=== PATIENT | male | born 1960 | race Caucasian/White ===

== ENCOUNTER → 2022-12-14 | Outpatient (CLI) | payer BC ==
[2022-12-15 01:44] LABS: Prostate Specific Antigen 3.1 ng/mL (0.00-4.50)
== END | disposition home or self-care (01) ==
LOC: LABWHC1 14:45
PROVIDERS: ATTEND Urology
DX: E29.1 Testicular hypofunction (principal); R97.20 Elevated prostate specific antigen [PSA]
CPT/HCPCS: 36415; 84153; 84403

== ENCOUNTER → 2024-03-29 | Outpatient (CLI) | payer BC ==
[2024-03-29 13:50] VITALS: BP 133/90; PULSE 90; RESP 16; TEMP 98.4
--- NOTE | 2024-03-29 14:32 | P.SLEEP ---
History of Present Illness DATE: 03/29/2024 CONSULTATION/NEW PATIENT EVALUATION HISTORY OF PRESENT ILLNESS/SLEEP-WAKE EVALUATION: 63-year-old gentleman had be en evaluated in the sleep center for possible obstructive sleep apnea hypopnea syndrome. SLEEP SCHEDULE: Usually sleep schedule from 10 PM to 4:30 AM on weekdays and until 7:30 AM on weekend. FALLING ASLEEP: Sometimes patient has difficulties with falling asleep, has TV set in bedroom. DURING SLEEP: Patient usually sleeps on the side position with snoring and witnessed episodes of stop breathing during his sleep by his . Patient wakes up from sleep up to 3 times with 1 episode of nocturia. No history of hypnogogical hallucinations, sleep paralysis, or cataplexy. DURING THE DAY/WAKE STATE: In the morning patient wake up tired. Ross sleepiness scale is 8. Patient takes nap from 2 to 3 PM on days off. PAST MEDICAL HISTORY: Hyperlipidemia. PAST SURGICAL HISTORY: Surgical treatment for nasal septum deviation. MEDICATIONS: Please see below. SOCIAL HISTORY: Please see below. FAMILY HISTORY: Lupus. REVIEW OF SYSTEMS: Snoring, awakenings from sleep. No fevers. No double vision. No recent chest pain. No shortness of breath. No abdominal pain. No bleeding episodes. No blood in urine. No seizure episodes. PHYSICAL EXAMINATION: GENERAL: A pleasant patient without any distress. VITAL SIGNS: Please see below, weight 206 pounds, BMI 31.3. HEENT: PERRLA, EOMI. Evaluation of oropharynx showed tongue protrudes midline, low position of soft palate Mallampati 4. NECK: Supple. No JVD. Thyroid is not palpable. 16.5 inches in circumference. LUNGS: Clear to percussion and to auscultation. Good air exchange. No wheezing or rhonchi. HEART: S1, S2 regular. No murmurs, gallops or rubs. ABDOMEN: Soft and nontender. Bowel sounds are present. No organomegaly appreciated. EXTREMITIES: No clubbing or cyanosis. RAIL TECHNICIAN: Awake, alert, and oriented x3. Cranial nerves 2 to 7 intact. There is no fasciculation or atrophy noted. No focal deficits observed. ASSESSMENT: 1. Snoring, witnessed episodes of stop breathing in the sleep, extremely low position of soft palate Mallampati 4. Obstructive sleep apnea hypopnea syndrome. 2. Mild obesity by body mass index 31.3. 3. Hyperlipidemia. 4. Status post surgical treatment for nasal septal deviation. PLAN: 1. Home sleep apnea test for evaluation of patient's breathing during sleep. 2. Following plan after reading sleep study. 3. Preferable position during sleep on the side. 4. No driving if patient feels any sleepiness. Patient is aware of civil and criminal liability for unsafe driving. 5. Sleep hygiene with regular sleep time for at least 7.5-8 hours. 6. Watching weight. Thank you very much for referring this patient for consultation. Sincerely, Naveed Moore MD, PhD, FAASM. Diplomat of [place] [employer], Sleep Medicine Board by [place] [employer] [employer] Student Finance Advisor of [facility] [place] Past Medical History Past Medical History: Hyperlipidemia Additional Past Medical History / Comment(s): recent kidney infection? History of Any Multi-Drug Resistant Organisms: None Reported Additional Past Surgical History / Comment(s): nasal surgery/deviated septum, vasectomy reversal Past Anesthesia/Blood Transfusion Reactions: No Reported Reaction Past Psychological History: Depression Smoking Status: Vaper Past Alcohol Use History: Rare Past Drug Use History: None Reported - Past Family History Mother Additional Family Medical History / Comment(s): Lupus Brother(s) Additional Family Medical History / Comment(s): alcoholic Medications and Allergies Home Medications Medication Instructions Recorded Confirmed Type Aspirin [Adult Low Dose Aspirin EC] 81 mg PO DAILY 03/29/24 03/29/24 History DULoxetine HCL [Cymbalta] 60 mg PO DAILY 03/29/24 03/29/24 History Ezetimibe [Zetia] 10 mg PO DAILY 03/29/24 03/29/24 History Physical Exam Vitals: Vital Signs Temp Pulse Resp BP Pulse Ox 03/29/24 13:49 98.4 F 90 16 133/90 97 Sleep Note - Sleep Data ESS Total: 8 - Sleep Note Sleep Note: Temperature: 98.4 F Pulse Rate: 90 Respiratory Rate: 16 Blood Pressure: 133/90 SpO2: 97 Height: Weight: BMI: Neck Circumference: 16.5
== END ==
LOC: 3 N SLEEP 13:31
PROVIDERS: ATTEND Internal Medicine
DX: G47.33 Obstructive sleep apnea (adult) (pediatric) (principal); E66.9 Obesity, unspecified; E78.5 Hyperlipidemia, unspecified; F17.290 Nicotine dependence, other tobacco product, uncomplicated; Z98.890 Other specified postprocedural states; Z68.31 Body mass index [BMI] 31.0-31.9, adult
CPT/HCPCS: 99211

== ENCOUNTER → 2024-04-03 | Outpatient (CLI) | payer BC ==
--- NOTE | 2024-04-06 10:53 | P.PCN ---
Description of Procedure: CLINICAL: A home sleep apnea test has been done for confirmation of possible obstructive sleep apnea-hypopnea syndrome. DESCRIPTION OF PROCEDURE: RESULTS: Recording time was 7 hours 16 minutes. Evaluation time was 7 hours 4 minutes. Evaluation time is sufficient for making conclusion about results of the test. Raw data of sleep recording has been reviewed and is adequate. Respiratory channel showed 5 apneas and 182 hypopneas. Apnea-hypopnea index was 26.4 per hour. Pulse rate in the range between minimum 66, maximum 111, average 81 by computer calculation. Lowest desaturation was 80%. IMPRESSION: 1. Moderate Obstructive Sleep Apnea Hypopnea Syndrome. Please see other impressions from consultation. PLAN: 1. The patient will be started on auto-PAP treatment. correction of respiratory abnormallities during sleep. 2. I will see patient for follow up visit to discuss results of the test, evaluate clinical response on treatment with PAP therapy and make any necessary adjustments related to mask fitting, pressure, and humidification. 3. Watching weight. 4. Sleep hygiene with regular time in bed for at least 8 hours. 5. No driving if feeling any sleepiness. Thank you very much for allowing me to participate in the management of your patient. Sincerely, Naveed Moore MD, PhD, FAASM Diplomat of [place] [employer] Sleep Medicine Board of [place] [employer] Purchasing Department Clerk of [facility] [place] cc: Melly Lauren MD
== END | disposition home or self-care (01) ==
LOC: 3 N SLEEP 13:00
PROVIDERS: ATTEND Internal Medicine
DX: G47.33 Obstructive sleep apnea (adult) (pediatric) (principal)

== ENCOUNTER → 2024-07-25 | Outpatient (CLI) | payer BC ==
--- NOTE | 2024-07-25 15:07 | CT ---
EXAMINATION TYPE: CT urogram wo/w con CT DLP: 3795 mGycm, Automated exposure control for dose reduction was used. DATE OF EXAM: 07/25/2024 12:57 PM COMPARISON: None CLINICAL INDICATION:Male, 63 years old with history of R31.0 HEMATURIA; PHH, HEMATURIA TECHNIQUE: Urogram of the abdomen and pelvis was performed before and after the administration of 100 cc of IV c ontrast Isovue 300 contrast. Delayed imaging was performed. Coronal and sagittal reformats were perfo rmed. One or more CT dose reduction strategies were utilized during this examination. FINDINGS: GENITOURINARY: RIGHT KIDNEY AND URETER: No calculi. No hydronephrosis or hydroureter. No renal mass or other lesions . No urothelial lesions: no filling defect, dilation, stricture or wall thickening. LEFT KIDNEY AND URETER: No calculi. No hydronephrosis or hydroureter. No renal mass or other lesions. No urothelial lesions: no filling defect, dilation, stricture or wall thickening. URINARY BLADDER: Mildly distended. Normal, no calculi, mass or other lesions. REPRODUCTIVE: Unremarkable. ABDOMEN LIVER: Couple of subcentimeter hypoattenuating structures are demonstrated throughout the liver, whic h are too small to accurately characterize but statistically represent hepatic cysts. GALLBLADDER AND BILE DUCTS: Unremarkable PANCREAS: Unremarkable. SPLEEN: Unremarkable. ADRENAL GLANDS: Unremarkable. STOMACH AND BOWEL: Redundant sigmoid colon. No focal wall thickening or surrounding inflammatory montero ges. The appendix is within normal limits. No evidence of bowel obstruction. PERITONEUM: No evidence of pneumoperitoneum, free fluid, or adenopathy. VASCULATURE: Mild atherosclerotic calcifications are present throughout the abdominal aorta and its b ranches. No abdominal aortic aneurysm. MUSCULOSKELETAL: No acute osseous abnormalities. Degenerative disc disease most pronounced at L5-S1. SOFT TISSUE/ABDOMINAL WALL: Tiny fat filled umbilical hernia. LOWER CHEST: Visualized lung bases are clear. Small coronary calcifications. IMPRESSION: No evidence of urolithiasis or renal/urothelial neoplasm. [facility], , 07/25/2024 3:05 PM
== END | disposition home or self-care (01) ==
LOC: RADCTMAIN 10:45
PROVIDERS: ATTEND Urology
CPT/HCPCS: 74178; 74400